=== PATIENT | male | born 1975 | race Caucasian/White ===

== ENCOUNTER 2016-08-22 05:44 | Day surgery (SDC) | payer OTHER ==
--- NOTE | ~2016-08-22 | OP ---
Record Of Operation [facility] [address] [place]. [address] NAME: LEONIE MATTHEW : 71 STATUS : REG [facility] PAT#: [id number] AGE: 40 ADM/REG DATE : 08/22/16 MR#: [id number] REPORT SERV DATE: 08/22/16 DICTATED BY: LETICIA KAT DATE: 08/22/16 REPORT STATUS : Draft TRANSCRIBED BY: MODL DATE: 08/22/16 DATE OF PROCEDURE: 08/22/2016 PREOPERATIVE DIAGNOSIS: Asymmetric left tonsil. POSTOPERATIVE DIAGNOSIS: Chronic tonsillitis. PROCEDURE PERFORMED: Direct laryngoscopy with biopsy, left tonsil. SURGEON: Leticia Kat M.D. SPINNER IRON: None. ANESTHESIA: General. COMPLICATIONS: None. CONDITION: Stable to recovery. INDICATION: A 40-year-old male, with a history of left-sided throat discomfort and examination showing a slightly asymmetrical left tonsil with firmness on exam along the upper pole. A CT scan was performed and negative. MRI scan was performed showing a small soft tissue density showing there was some enlargement with some asymmetrical soft tissue on the left anterior tonsil as compared to the right. The risks, benefits, and alternatives with the exam under anesthesia were explained and he agreed. PROCEDURE IN DETAIL: The patient was identified in the preoperative holding, and taken back to the operating room, and placed in supine on the operating table. General anesthesia was established. He was prepped and draped in a standard fashion for the operation. Using a Armand-Wilver mouth gag the patient's oral cavity was exposed. Bimanual palpation was performed on the right and left tonsil. The right and left tonsil were similar in consistency on palpation. The right thyroid process was lower than the left and could be distinguished from the tonsil once he was asleep and I could get the palpation and digital feeling between the posterior aspect of the tonsil and the styloid. There was an area of firmness on the left tonsil compared to the right, it was in the upper pole that was slightly more noticeable on the left side, and this was biopsied multiple times. It was sent Pathology, and this showed just signs of acute and chronic inflammation. Bismuth was placed on the biopsy site with minimum bleeding. The [employer] laryngoscope was then used to examine the hypopharynx and larynx, and all mucosal surfaces were clear. The neck had no palpable adenopathy. After I examined the frozen section with Pathology showing acute and chronic inflammation, no evidence of lymphomatous change and/or carcinomatous change, so the decision was made to terminate the case at this point. The patient awakened and taken to the recovery in stable condition. Record Of Operation [facility] [id number] [place] [address] NAME: LEONIE MATTHEW DR : 71 STATUS : REG [facility] [place] PAT#: [id number] AGE: 40 ADM/REG DATE : 08/22/16 MR#: [id number] REPORT SERV DATE: 08/22/16 DICTATED BY: LETICIA KAT DATE: 08/22/16 REPORT STATUS : Draft TRANSCRIBED BY: FRANSICO DATE: 08/22/16 PH/FRANSICO Leticia Kat M.D. / [id number] CC: Peg Yancey M.D.
[~2016-08-22 05:44] MED LIST: AMOXIL500C PO; CLARIT10 PO
== END 2016-08-22 17:35 | disposition home or self-care (01) ==
LOC: SDC 05:44
PROVIDERS: Specialist
PROC: 0CBM8ZX Excision of Pharynx, Via Natural or Artificial Opening Endoscopic, Diagnostic (ICD-10-PCS; principal; 2016-08-22 06:45)
DX: J03.90 Acute tonsillitis, unspecified (principal); G43.909 Migraine, unspecified, not intractable, without status migrainosus; G47.33 Obstructive sleep apnea (adult) (pediatric); Z79.2 Long term (current) use of antibiotics; Z79.899 Other long term (current) drug therapy; Z83.6 Family history of other diseases of the respiratory system; Z98.890 Other specified postprocedural states
CPT/HCPCS: 88305; 88331; A9270-GY; J0690; J2250; J2405; J2710; J3010